=== PATIENT | male | born 1945 | race African-American/Black ===

== ENCOUNTER 2018-06-06 20:48 | Emergency (ER) | payer MEDICARE, OTHER ==
[2018-06-06] MEDS ORDERED: TYLENOL ONE (21:23)
[2018-06-06] MEDS ORDERED: TYLENOL PO ONE (21:25)
[2018-06-06 21:28] VITALS: BP 129/64
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
== END 2018-06-06 23:28 | disposition home or self-care (01) ==
LOC: ED 20:48
DX: S46.011A Strain of muscle(s) and tendon(s) of the rotator cuff of right shoulder, initial encounter (principal); E11.9 Type 2 diabetes mellitus without complications; V49.59XA Passenger injured in collision with other motor vehicles in traffic accident, initial encounter; Y93.89 Activity, other specified; Y92.410 Unspecified street and highway as the place of occurrence of the external cause; Y99.8 Other external cause status